=== PATIENT | male | born 1975 | race Caucasian/White ===

== ENCOUNTER 2020-06-10 12:21 | Inpatient (IN) | payer OTHER ==
--- NOTE | 2020-06-10 12:40 | BHS.RME ---
2019 N Coronavirus Screen - COVID-19 Screening Questions Dx of COVID-19 or had a positive test in the last 4 weeks?: No Contact with known/suspected COVID patient in last 14 days?: No Any of these symptoms or contact with someone who has?: None Traveled domestically/internationally in the last 14 days?: No Screen score: 0 Screen result: Further Evaluation Substance Use & Tx History - Substance Use History Heroin Substance amount: 10-15 bags Frequency of use: Daily Substance route: Injection (ex: intravenous or skin popping) Date of Last Use: 06/10/20 Xanax Substance amount: 2 to 4 mg Frequency of use: Daily Substance route: Oral Date of Last Use: 06/09/20 Nicotine Substance amount: one pack Frequency of use: Daily Substance route: Smoking Date of Last Use: 06/10/20 Cocaine- Powder Substance amount: $20 Frequency of use: Less than 3 times per week Substance route: Injection (ex: intravenous or skin popping) Date of Last Use: 06/09/20 Physical/Psych/Mental Status - Behavior General Behavior: Decreased activity Eye Contact: Normal - Cooperativeness Cooperativeness: Cooperative - Thinking Thought Processes: Tight Thought content: Future oriented - Physical Health Problems Is patient presently having any pain?: No Does patient presently have any injuries (include location): No Does patient currently have a fever: No COWS - Scale Resting Pulse: 0= [place] 80 or Below Sweatin= Chills/Flushing Restless Observation: 1= Difficult to Sit Still Pupil Size: 1= Pupils >than Normal Bone or Joint Aches: 1= Mild Discomfort Runny Nose/ Eye Tearin= Runny Nose/Eyes GI Upset > 30mins: 2= Nausea/Diarrhea Tremor Observation: 0= None Yawning Observation: 0= None Anxiety or Irritability: 1=Feels Anxious/Irritable Goose Flesh Skin: 0=Smooth Skin COWS Score: 9 CIWA Nausea/Vomitin-Mild Nausea/No Vomiting Muscle Tremors: None Anxiety: 3 Agitation: 1-Slight > Activity Paroxysmal Sweats: No Perspiration Orientation: 1-Uncertain about Date Tacttile Disturbances: 0-None Auditory Disturbances: 0-None Visual Disturbances: 0-None Headache: 0-None Present CIWA-Ar Total Score: 6
[2020-06-10 12:57] VITALS: BMI 21.9
--- NOTE | 2020-06-10 13:32 | HP ---
COWS - Scale Resting Pulse: 0= [place] 80 or Below Sweatin= Chills/Flushing Restless Observation: 1= Difficult to Sit Still Pupil Size: 1= Pupils >than Normal Bone or Joint Aches: 1= Mild Discomfort Runny Nose/ Eye Tearin= Runny Nose/Eyes GI Upset > 30mins: 2= Nausea/Diarrhea Tremor Observation: 0= None Yawning Observation: 0= None Anxiety or Irritability: 1=Feels Anxious/Irritable Goose Flesh Skin: 0=Smooth Skin COWS Score: 9 CIWA Score Nausea/Vomitin-Mild Nausea/No Vomiting Muscle Tremors: None Anxiety: 3 Agitation: 1-Slight > Activity Paroxysmal Sweats: No Perspiration Orientation: 1-Uncertain about Date Tacttile Disturbances: 0-None Auditory Disturbances: 0-None Visual Disturbances: 0-None Headache: 0-None Present CIWA-Ar Total Score: 6 - Admission Criteria OASAS Guidelines: Admission for Medically Managed Detox: Requires at least one of the followin. CIWA greater than 12 2. Seizures within the past 24 hours 3. Delirium tremens within the past 24 hours 4. Hallucinations within the past 24 hours 5. Acute intervention needed for co occurring medical disorder 6. Acute intervention needed for co occurring psychiatric disorder 7. Severe withdrawal that cannot be handled at a lower level of care (continued vomiting, continued diarrhea, abnormal vital signs) requiring intravenous medication and/or fluids 8. Patient presents the following: Acute intervention needed for co-occurring med or psych disorder Admission Criteria Met: Admission criteria met Admitting History and Physical - Admission Chief Complaint: I am here for detox from heroin and xanax History of Present Illness: 44 yo M with PMH Hepatitis C (untreated), L groin abscess (in the process of treatment, started antibiotics 1 week ago at [facility] ED but was inconsistent with his regimen) presented to [facility] for detox from heroin and xanax. Pt has been here previously from 05/07/15-05/13/15 for detox from heroin benzos and THC and completed detox. Pt was sober for 18 months. Pt relapsed after that and stated he "wanted to get high". PMH: as above PSH: none Psych: denies SOC/domiciled: homeless Legal: denies - Substance Use History Heroin Substance amount: 10-15 bags Frequency of use: Daily Substance route: Injection (ex: intravenous or skin popping) Date of Last Use: 06/10/20 Age first use: 17 YO Denies overdose. Admits to having narcan at home. Xanax Substance amount: 2 to 4 mg Frequency of use: Daily Substance route: Oral Date of Last Use: 06/09/20 age first use: 14 YO Denies history of seizures. Nicotine Substance amount: one pack Frequency of use: Daily Substance route: Smoking Date of Last Use: 06/10/20 age first use: 12 yo Cocaine- Powder Substance amount: $20 Frequency of use: Less than 3 times per week Substance route: Injection (ex: intravenous or skin popping) Date of Last Use: 06/09/20 Age first use: 14 YO Meets criteria for admission due to recent use. History Source: Patient Limitations to Obtaining History: Intoxication - Smoking History Smoking history: Current every day smoker Have you smoked in the past 12 months: Yes Aproximately how many cigarettes per day: 20 - Alcohol/Substance Use Hx Alcohol Use: No Admission ROS S - HPI Allergies/Adverse Reactions: Allergies Allergy/AdvReac Type Severity Reaction Status Date / Time Fish Containing Products Allergy Unknown Verified 06/10/20 13:01 Exam Limitations: No Limitations - Review of Systems Constitutional: No Symptoms Reported, Changes in sleep (12 hours of sleep), Unintentional Wgt. Loss (30 lbs lost over 2-3 months) EENT: denies: Blurred Vision, Double Vision, Recent change in vision, Ear Discharge, Ear Pain, Difficulty Swallowing, Throat Pain Respiratory: reports: No Symptoms reported. denies: Cough, Shortness of Breath Cardiac: reports: No Symptoms Reported. denies: Chest Pain, Lightheadedness GI: reports: No Symptoms Reported. denies: Constipated, Diarrhea, Nausea, Vomiting : reports: No Symptoms Reported. denies: Burning, Dysuria Musculoskeletal: reports: Joint Pain (b/l knee pain) Integumentary: reports: Other (L groin abscess) Neuro: reports: No Symptoms reported. denies: Headache, Numbness, Tingling, Dizziness Endocrine: reports: No Symptoms Reported Hematology: reports: No Symptoms Reported. denies: Blood Clots, Easy Bleeding Psychiatric: reports: No Sypmtoms Reported. denies: Anxious, Depressed Patient History - Patient Medical History Hx Anemia: No Hx Asthma: No Hx Chronic Obstructive Pulmonary Disease (COPD): No Hx Cancer: No Hx Cardiac Disorders: No Hx Hypertension: No Hx Hypercholesterolemia: No Hx Pacemaker: No HX Cerebrovascular Accident: No Hx Seizures: No Hx Dementia: No Hx Diabetes: No Hx Gastrointestinal Disorders: No Hx Liver Disease: No Hx Genitourinary Disorders: No Hx Sexually Transmitted Disorders: No Hx Renal Disease (ESRD): No Hx Thyroid Disease: No Hx Human Immunodeficiency Virus (HIV): No (negative last 08/20) Hx Hepatitis C: Yes Hx Depression: No Hx Suicide Attempt: No Hx Bipolar Disorder: No Hx Schizophrenia: No - Patient Surgical History Past Surgical History: No Hx Neurologic Surgery: No Hx Cataract Extraction: No Hx Cardiac Surgery: No Hx Lung Surgery: No Hx Breast Surgery: No Hx Breast Biopsy: No Hx Abdominal Surgery: No Hx Appendectomy: No Hx Cholecystectomy: No Hx Genitourinary Surgery: No Hx Section: No Hx Orthopedic Surgery: No Hx Hysterectomy: No Anesthesia Reaction: No - PPD History Previous Implant?: Yes Documented Results: Negative w/proof Date: 05/09/15 - Reproductive History Patient : (n/a) - Smoking Cessation Smoking history: Current every day smoker Have you smoked in the past 12 months: Yes Aproximately how many cigarettes per day: 20 Cigars Per Day: 0 Hx Chewing Tobacco Use: No Initiated information on smoking cessation: Yes 'Breaking Loose' booklet given: 06/10/20 Admission Physical Exam BHS - Vital Signs Vital Signs: Vital Signs - 24 hr 06/10/20 12:55 Temperature 96.7 F L Pulse Rate 69 Respiratory 18 Rate Blood Pressure 126/78 - Physical General Appearance: Yes: Nourished, Appropriately Dressed HEENTM: Yes: EOMI, Normocephalic, Normal Voice, [place], Other (moist mucus membranes. Pupils constricted and reactive to light) Respiratory: Yes: Chest Non-Tender, Lungs Clear, Normal Breath Sounds, No Respiratory Distress, No Accessory Muscle Use Neck: Yes: No masses,lesions,Nodules, Supple Breast: Yes: Breast Exam Deferred Cardiology: Yes: Regular Rhythm, Regular Rate, S1, S2 Abdominal: Yes: Normal Bowel Sounds, Non Tender, Flat, Soft Genitourinary: Yes: Other (L groin lesion with surrounding erythema. Fluctuance observed. 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 (3) Hepatitis C Current Visit: Yes Status: Chronic Qualifiers: Viral hepatitis chronicity: unspecified Hepatic coma status: without hepatic coma Qualified Code(s): B19.20 - Unspecified viral hepatitis C without hepatic coma (4) Nicotine dependence Current Visit: Yes Status: Chronic Qualifiers: Nicotine product type: cigarettes Substance use status: unspecified nicotine-induced disorder Qualified Code(s): F17.219 - Nicotine dependence, cigarettes, with unspecified nicotine-induced disorders (5) Abscess of groin, left Current Visit: Yes Status: Acute Cleared for Admission [facility] - Detox or Rehab [facility] Level of Care: Medically Managed Detox Regimen/Protocol: Ativan, Methadone Breathalyzer - Breathalyzer Breathalyzer: 0 Urine Drug Screen - Test Device Lot number: [id number] Expiration date: 03/12/22 - Control Is test valid?: Yes - Results Drug screen NEGATIVE: No Urine drug screen results: THC-Marijuana, LELIA-Cocaine, FEN-Fentanyl, MOP- Opiates, BZO-Benzodiazepines Inpatient Rehab Admission - Rehab Decision to Admit Inpatient rehab admission?: No
--- OUTSIDE RECORDS SUMMARY | 2020-06-10 13:37 | XMS ---
:1975 Author Organization [facility] Support Name Relationship Address Phone UE Unavailable Unavailable Unavailable [facility] [place] [address] [address] [place] [address] Re-disclosure Warning The records that you are about to access may contain information from federally- assisted alcohol or drug abuse programs. If such information is present, then the following federally mandated warning applies: This information has been disclosed to you from records protected by federal confidentiality rules (42 CFR part 2). The federal rules prohibit you from making any further disclosure of this information unless further disclosure is expressly permitted by the written consent of the person to whom it pertains or as otherwise permitted by 42 CFR part 2. A general authorization for the release of medical or other information is NOT sufficient for this purpose. The Federal rules restrict any use of the information to criminally investigate or prosecute any alcohol or drug abuse patient.The records that you are about to access may contain highly sensitive health information, the redisclosure of which is protected by Article 27-F of the [facility] Public Health law. If you continue you may haveaccess to information: Regarding HIV / AIDS; Provided by facilities licensed or operated by the [facility] Office of Mental Health; or Provided by the [facility] Office for People With Developmental Disabilities. If such information is present, then the following [facility] mandated warning applies: This information has been disclosed to you from confidential records which are protected by state law. State law prohibits you from making any further disclosure of this information without the specific written consent of the person to whom it pertains, or as otherwise permitted by law. Any unauthorized further disclosure in violation of state law may result in a fine or chcf sentence or both. A general authorization for the release of medical or other information is NOT sufficient authorization for further disclosure. Insurance Providers Payer name Policy type Policy ID Covered Covered constitution party's Policy P belia / Coverage constitution party ID relationship to Chase Inf ormation type chase BEACON [id number] SP [id number] [facility]
[2020-06-10] MEDS ORDERED: IBUPROFEN 400 MG TABLET (FP) PO PRN (13:43)
[2020-06-10] MEDS ORDERED: ACETAMINOPHEN 325 MG TABLET (FP) PO PRN ×2 (13:43)
[2020-06-10] MEDS ORDERED: METHOCARBAMOL 500 MG TABLET PO PRN (13:43)
[2020-06-10] MEDS ORDERED: LORazepam 1 MG TABLET PO PRN (13:43)
[2020-06-10] MEDS ORDERED: METHADONE HCL 10 MG TABLET (FOR DETOX USE ONLY) PO ONE (13:43)
[2020-06-10] MEDS ORDERED: cloNIDine HCL 0.1 MG TABLET PO PRN (13:43)
[2020-06-10] MEDS ORDERED: BISMUTH SUBSALICYLATE 262 MG/15 ML BTL PO PRN (13:43)
[2020-06-10] MEDS ORDERED: MAG HYDROX/AL HYDROX/SIMETH 30 ML UNIT-DOSE CUP PO PRN (13:43)
[2020-06-10] MEDS ORDERED: MAGNESIUM HYDROX 2400MG/30ML ORAL SUSPENSION 30 ML CUP PO PRN (13:43)
[2020-06-10] MEDS ORDERED: NICOTINE POLACRILEX 2 MG GUM BUC PRN (13:43)
[2020-06-10] MEDS ORDERED: MENTHOL/PHENOL 1 EACH UD MM PRN (13:43)
[2020-06-10] MEDS ORDERED: MAGNESIUM CITRATE 300 ML BOTTLE PO PRN (13:43)
[2020-06-10] MEDS ORDERED: ONDANSETRON *ODT* 4 MG TABLET SL PRN (13:43)
[2020-06-10] MEDS: CEPHALEXIN MONOHYDRATE 500 MG CAPSULE (UD) PO SCH ×2 (14:46→22:25)
[2020-06-10] MEDS: LORazepam 2 MG TABLET PO SCH ×3 (14:46→22:26)
[2020-06-10] MEDS: hydrOXYzine PAMOATE 25 MG CAPSULE (FP) PO SCH ×3 (14:51→22:28)
[2020-06-10 16:57] LABS: ALBUMIN 3.2 g/dl (3.4-5.0); BLOOD UREA NITROGEN 11.5 mg/dL (7-18)
[2020-06-10 17:00] LABS: CREATININE 0.6 mg/dL (0.55-1.3)
[2020-06-10 17:01] LABS: BILIRUBIN,TOTAL 0.9 mg/dL (0.2-1); TOT PROT 6.8 g/dl (6.4-8.2)
[2020-06-10 17:04] LABS: HEMATOCRIT 35.8 % (35.4-49); HEMOGLOBIN 11.8 GM/dL (11.7-16.9); MCH 27.9 pg (25.7-33.7); MCHC 32.8 g/dl (32.0-35.9); MEAN CELL VOLUME 85.2 fl (80-96); MEAN PLT VOLUME 8.1 fl (7.5-11.1); PLATELET COUNT 210 K/MM3 (134-434); RBC 4.21 M/mm3 (4.00-5.60); RDW 14.6 % (11.9-15.9); WHITE BLOOD COUNT 6.2 K/mm3 (4.0-10.0)
[2020-06-10] MEDS: THIAMINE HCL 100 MG TABLET (FP) PO SCH (22:25)
[2020-06-10] MEDS: MELATONIN 5 MG TABLETS PO SCH (22:26)
[2020-06-11] MEDS: CEPHALEXIN MONOHYDRATE 500 MG CAPSULE (UD) PO SCH ×5 (03:04→23:15)
[2020-06-11] MEDS: LORazepam 2 MG TABLET PO SCH ×4 (05:54→22:30)
[2020-06-11] MEDS: hydrOXYzine PAMOATE 25 MG CAPSULE (FP) PO SCH ×2 (05:57→10:10)
[2020-06-11] MEDS ORDERED: METHADONE HCL 10 MG TABLET (FOR DETOX USE ONLY) ONE (08:27)
[2020-06-11] MEDS ORDERED: METHADONE HCL 5 MG TABLET (FOR DETOX USE ONLY) ONE (08:27)
--- NOTE | 2020-06-11 09:09 | PN ---
Teaching Attending Note Name of Resident: Hannah Jorge ATTENDING PHYSICIAN STATEMENT I saw and evaluated the patient. I reviewed the resident's note and discussed the case with the resident. I agree with the resident's findings and plan as documented. SUBJECTIVE: OBJECTIVE: ASSESSMENT AND PLAN: 1. Sedative use disorder 2. Opioid use disorder Plan 1. Ativan detox 2. Methadone detox
[2020-06-11] MEDS ORDERED: METHADONE (DETOX) 20 MG, METHADONE (DETOX) 5 MG PO ONE (10:00)
[2020-06-11] MEDS: PRENATAL VITAMINS W/ FOLIC ACID TABLET (FP) PO SCH (10:09)
[2020-06-11] MEDS: NICOTINE 21 MG/24 HOURS TOPICAL PATCH TD SCH (10:11)
[2020-06-11] MEDS ORDERED: LORazepam 1 MG TABLET PO PRN (10:33)
--- NOTE | 2020-06-11 10:48 | PN ---
[facility] CIWA - CIWA Score Nausea/Vomitin-No Nausea/No Vomiting Muscle Tremors: 1-None Visible, but [place] Anxiety: 4-Mod. Anxious/Guarded Agitation: 2 Paroxysmal Sweats: 1-Minimal Palms Moist Orientation: 0-Oriented Tacttile Disturbances: 1-Very Mild Itch/Numbness Auditory Disturbances: 0-None Visual Disturbances: 2-Mild Sensitivity Headache: 1-Very Mild CIWA-Ar Total Score: 12 BHS COWS - Scale Resting Pulse: 0= [place] 80 or Below Sweatin= No chills or Flushing Restless Observation: 0= Sits Still Pupil Size: 1= Pupils >than Normal Bone or Joint Aches: 1= Mild Discomfort Runny Nose/ Eye Tearin= None GI Upset > 30mins: 0= None Tremor Observation of Outstretched Hands: 1= Tremor Eros, Not Seen Yawning Observation: 0= None Anxiety or Irritability: 2=Irritable/Anxious Goose Flesh Skin: 3=Piloerection COWS Score: 8 S Progress Note (SOAP) Subjective: 44 years old male was admitted on 06/10/20 for benzo and opiate withdrawal sx management treating with ativan and methadone detox regiments ate small amount of breakfast continue ensure 120 ml po tid with meals mr dowell appears sleepy needs constant light touch to avoid eyes closing discontinue vistaril reduces ativan dosage ekg Objective: 06/11/20 10:57 Vital Signs - 24 hr 06/10/20 06/10/20 06/10/20 12:55 14:16 16:17 Temperature 96.7 F L 98 F 97.6 F Pulse Rate 69 60 58 L Respiratory 18 20 18 Rate Blood Pressure 126/78 114/74 109/57 L O2 Sat by Pulse 99 99 Oximetry (%) 06/10/20 06/11/20 06/11/20 20:23 06:09 08:50 Temperature 97.6 F 97.7 F 98.3 F Pulse Rate 67 71 70 Respiratory 16 18 18 Rate Blood Pressure 112/58 L 134/81 134/79 O2 Sat by Pulse 95 95 95 Oximetry (%) Laboratory Tests 06/10/20 06/10/20 06/10/20 14:00 14:00 14:00 WBC 6.2 RBC 4.21 Hgb 11.8 Hct 35.8 MCV 85.2 MCH 27.9 MCHC 32.8 RDW 14.6 Plt Count 210 MPV 8.1 Sodium 138 Potassium 4.0 Chloride 102 Carbon Dioxide 29 Anion Gap 8 BUN 11.5 Creatinine 0.6 Est GFR (CKD-EPI)AfAm 140.73 Est GFR (CKD-EPI)NonAf 121.43 Random Glucose 146 H Calcium 9.0 Total Bilirubin 0.9 AST 43 H ALT 47 Alkaline Phosphatase 60 Total Protein 6.8 Albumin 3.2 L Syphilis Serology HIV Ag/Ab Combo Qual Negative 06/10/20 14:00 WBC RBC Hgb Hct MCV MCH MCHC RDW Plt Count MPV Sodium Potassium Chloride Carbon Dioxide Anion Gap BUN Creatinine Est GFR (CKD-EPI)AfAm Est GFR (CKD-EPI)NonAf Random Glucose Calcium Total Bilirubin AST ALT Alkaline Phosphatase Total Protein Albumin Syphilis Serology Non-reactive HIV Ag/Ab Combo Qual glucose elevation 06/11/20 10:59 fasting pending Assessment: 06/11/20 11:00 benzo and opiate withdrawal Plan: ativan and methadone regiment
--- NOTE | 2020-06-11 16:44 | EKG ---
Test Reason : Blood Pressure : / mmHG Vent. Rate : 055 BPM Atrial Rate : 055 BPM P-R Int : 148 ms QRS Dur : 088 ms QT Int : 428 ms P-R-T Axes : 074 080 068 degrees QTc Int : 409 ms SINUS BRADYCARDIA OTHERWISE NORMAL ECG NO PREVIOUS ECGS AVAILABLE Confirmed by AAKASH QUIGLEY MD ([id number]) on 06/11/2020 4:43:46 PM Referred By: Confirmed By:AAKASH QUIGLEY MD
[2020-06-11] MEDS: MELATONIN 5 MG TABLETS PO SCH (22:29)
[2020-06-11] MEDS: THIAMINE HCL 100 MG TABLET (FP) PO SCH (22:29)
[2020-06-12] MEDS ORDERED: LORazepam 1 MG TABLET PO SCH ×2 (05:00)
[2020-06-12] MEDS: CEPHALEXIN MONOHYDRATE 500 MG CAPSULE (UD) PO SCH ×4 (05:43→23:05)
[2020-06-12] MEDS ORDERED: LORazepam 0.5 MG TABLET PO SCH (05:52)
[2020-06-12] MEDS: PRENATAL VITAMINS W/ FOLIC ACID TABLET (FP) PO SCH (09:48)
[2020-06-12] MEDS: NICOTINE 21 MG/24 HOURS TOPICAL PATCH TD SCH (09:49)
[2020-06-12] MEDS ORDERED: METHADONE HCL 10 MG TABLET (FOR DETOX USE ONLY) PO ONE (10:00)
--- NOTE | 2020-06-12 10:05 | PN ---
[facility] CIWA - CIWA Score Nausea/Vomitin-No Nausea/No Vomiting Muscle Tremors: 1-None Visible, but [place] Anxiety: 1-Mildly Anxious Agitation: 1-Slight > Activity Paroxysmal Sweats: No Perspiration Orientation: 1-Uncertain about Date Tacttile Disturbances: 0-None Auditory Disturbances: 0-None Visual Disturbances: 0-None Headache: 0-None Present CIWA-Ar Total Score: 4 S COWS - Scale Resting Pulse: 1= [place] 81-100 Sweatin= No chills or Flushing Restless Observation: 0= Sits Still Pupil Size: 0= Normal to Room Light Bone or Joint Aches: 0= None Runny Nose/ Eye Tearin= None GI Upset > 30mins: 0= None Tremor Observation of Outstretched Hands: 0= None Yawning Observation: 0= None Anxiety or Irritability: 1=Feels Anxious/Irritable Goose Flesh Skin: 0=Smooth Skin COWS Score: 2 [facility] Progress Note (SOAP) Subjective: Pt appears anxious, in bed, no complaints Objective: 06/12/20 10:03 PE Gnl: WDWN, in bed MS: anxious, irritable Motor: moves limbs well Coord: grossly nl Gait; deferred Laboratory Tests 06/10/20 06/10/20 06/10/20 14:00 14:00 14:00 WBC 6.2 RBC 4.21 Hgb 11.8 Hct 35.8 MCV 85.2 MCH 27.9 MCHC 32.8 RDW 14.6 Plt Count 210 MPV 8.1 Sodium 138 Potassium 4.0 Chloride 102 Carbon Dioxide 29 Anion Gap 8 BUN 11.5 Creatinine 0.6 Est GFR (CKD-EPI)AfAm 140.73 Est GFR (CKD-EPI)NonAf 121.43 POC Glucometer Random Glucose 146 H Calcium 9.0 Total Bilirubin 0.9 AST 43 H ALT 47 Alkaline Phosphatase 60 Total Protein 6.8 Albumin 3.2 L Syphilis Serology COVID-19 ([facility]ACIO) HIV Ag/Ab Combo Qual Negative 06/10/20 06/10/20 06/11/20 14:00 14:00 16:21 WBC RBC Hgb Hct MCV MCH MCHC RDW Plt Count MPV Sodium Potassium Chloride Carbon Dioxide Anion Gap BUN Creatinine Est GFR (CKD-EPI)AfAm Est GFR (CKD-EPI)NonAf POC Glucometer 135 Random Glucose Calcium Total Bilirubin AST ALT Alkaline Phosphatase Total Protein Albumin Syphilis Serology Non-reactive COVID-19 ([facility]ACIO) Not detected HIV Ag/Ab Combo Qual 06/12/20 05:42 WBC RBC Hgb Hct MCV MCH MCHC RDW Plt Count MPV Sodium Potassium Chloride Carbon Dioxide Anion Gap BUN Creatinine Est GFR (CKD-EPI)AfAm Est GFR (CKD-EPI)NonAf POC Glucometer 150 Random Glucose Calcium Total Bilirubin AST ALT Alkaline Phosphatase Total Protein Albumin Syphilis Serology COVID-19 ([facility]IO) HIV Ag/Ab Combo Qual Home Medication List Medication Instructions Recorded Confirmed Type Cephalexin [Keflex] 500 mg PO Q6H 06/10/20 06/10/20 History Active Medications Generic Name Dose Route Start Last Admin Trade Name Freq PRN Reason Stop Dose Admin Acetaminophen 650 mg 06/10/20 13:43 Tylenol - PO Q6H PRN PAIN LEVEL 4 - 6 Acetaminophen 650 mg 06/10/20 13:43 Tylenol - PO Q6H PRN FEVER Al Hydroxide/Mg Hydroxide 30 ml 06/10/20 13:43 Mylanta Oral Suspension - PO Q6H PRN DYSPEPSIA Bismuth Subsalicylate 30 ml 06/10/20 13:43 Pepto-Bismol Liquid - PO Q1H PRN DIARRHEA Cephalexin HCl 500 mg 06/11/20 03:03 06/12/20 05:43 Keflex - PO 500 mg Q6HPO DAVIE Administration Clonidine 0.1 mg 06/10/20 13:43 Catapres - PO 06/12/20 23:59 Q4H PRN Withdrawal Symptoms Eucalyptus/Menthol/Phenol/Sorbitol 1 each 06/10/20 13:43 Cepastat Lozenge - MM 06/16/20 13:44 Q4H PRN SORE THROAT Ibuprofen 400 mg 06/10/20 13:43 Motrin - PO Q6H PRN PAIN LEVEL 1 - 3 Lorazepam 0.5 mg 06/13/20 00:00 Ativan - PO 06/14/20 00:00 Q4H PRN Symptoms of Withdrawal Lorazepam 0.5 mg 06/14/20 05:00 Ativan - PO 06/14/20 05:01 ONCE ONE Lorazepam 0.5 mg 06/13/20 10:30 Ativan - PO 06/13/20 22:31 Q12H ADVIE Lorazepam 1 mg 06/11/20 10:33 06/12/20 09:48 Ativan - PO 06/12/20 23:59 1 mg Q4H PRN Administration Symptoms of Withdrawal Lorazepam 0.5 mg 06/12/20 05:52 06/12/20 06:18 Ativan - PO 06/12/20 13:01 0.5 mg Q8H DAVIE Administration Magnesium Citrate 300 ml 06/10/20 13:43 Citroma - PO Q48H PRN CONSTIPATION Magnesium Hydroxide 30 ml 06/10/20 13:43 Milk Of Magnesia - PO PRN PRN CONSTIPATION Melatonin 5 mg 06/10/20 22:00 06/11/20 22:29 Melatonin PO Not Given [facility] Methadone HCl 5 mg 06/15/20 06:00 Dolophine - PO 06/15/20 06:01 ONCE@0600 ONE Methadone HCl 10 mg 06/14/20 10:00 Dolophine - PO 06/14/20 10:01 ONCE ONE Methadone HCl 10 mg/ Methadone 15 mg 06/13/20 10:00 HCl 5 mg PO 06/13/20 10:01 ONCE ONE Methocarbamol 500 mg 06/10/20 13:43 Robaxin - PO 06/16/20 13:44 Q6H PRN MUSCLE SPASMS Nicotine 21 mg 06/11/20 10:00 06/12/20 09:49 Nicoderm Patch - TD Not Given DAILY [facility] Nicotine Polacrilex 2 mg 06/10/20 13:43 Nicorette Gum - BUC Q2H PRN NICOTINE REPLACEMENT RX Ondansetron HCl 4 mg 06/10/20 13:43 Zofran Odt - SL Q8H PRN Nausea/Vomiting Multivit/Folic Acid/Iron 1 tab 06/11/20 10:00 06/12/20 09:48 Vitamins (Sjr) - PO 1 tab DAILY [facility] Administration Thiamine HCl 100 mg 06/10/20 22:00 06/11/20 22:29 Vitamin B1 - PO 100 mg HS DAVIE Administration Assessment: 06/12/20 10:01 44 years old male was admitted on 06/10/20 for benzo and opiate withdrawal sx management treating with ativan and methadone detox regiments 1. Sedative use disorder, was sleepy yesterday, ativan dosage reduced 2. Opiate use disorder, was sleepy yesterday, Vistaril stopped 3. elevated glucose, no hx of DM 06/12/20 10:07 Plan: 1. Methadone detox projected completion tomorrow 2. will check with counselor as to discharge plans. 3. monitoring glucose
[2020-06-12] MEDS: THIAMINE HCL 100 MG TABLET (FP) PO SCH (22:48)
[2020-06-12] MEDS: MELATONIN 5 MG TABLETS PO SCH (22:54)
[2020-06-13] MEDS ORDERED: LORazepam 0.5 MG TABLET PO PRN
[2020-06-13] MEDS ORDERED: LORazepam 0.5 MG TABLET PO SCH (05:00)
[2020-06-13] MEDS: CEPHALEXIN MONOHYDRATE 500 MG CAPSULE (UD) PO SCH ×4 (06:50→23:24)
[2020-06-13] MEDS ORDERED: METHADONE HCL 10 MG TABLET (FOR DETOX USE ONLY) ONE (08:39)
[2020-06-13] MEDS ORDERED: METHADONE HCL 5 MG TABLET (FOR DETOX USE ONLY) ONE (08:39)
[2020-06-13] MEDS ORDERED: METHADONE (DETOX) 10 MG, METHADONE (DETOX) 5 MG PO ONE (10:00)
[2020-06-13] MEDS: PRENATAL VITAMINS W/ FOLIC ACID TABLET (FP) PO SCH (10:30)
[2020-06-13] MEDS: NICOTINE 21 MG/24 HOURS TOPICAL PATCH TD SCH (10:31)
[2020-06-13] MEDS: LORazepam 0.5 MG TABLET PO SCH ×2 (10:31→22:41)
[2020-06-13] MEDS ORDERED: MASKS NR ONE (12:07)
--- NOTE | 2020-06-13 13:24 | PN ---
[facility] CIWA - CIWA Score Nausea/Vomitin-No Nausea/No Vomiting Muscle Tremors: None Anxiety: 1-Mildly Anxious Agitation: 0-Normal Activity Paroxysmal Sweats: 1-Minimal Palms Moist Orientation: 0-Oriented Tacttile Disturbances: 0-None Auditory Disturbances: 0-None Visual Disturbances: 0-None Headache: 0-None Present CIWA-Ar Total Score: 2 S COWS - Scale Resting Pulse: 0= [place] 80 or Below Sweatin= No chills or Flushing Restless Observation: 0= Sits Still Pupil Size: 0= Normal to Room Light Bone or Joint Aches: 2= Severe Diffuse Aches Runny Nose/ Eye Tearin= None GI Upset > 30mins: 0= None Tremor Observation of Outstretched Hands: 0= None Yawning Observation: 0= None Anxiety or Irritability: 2=Irritable/Anxious Goose Flesh Skin: 0=Smooth Skin COWS Score: 4 [facility] Progress Note (SOAP) Subjective: c/o mild withdrawal symptoms. Objective: 06/13/20 13:23 Vital Signs 06/13/20 06/13/20 06/13/20 05:48 08:31 12:33 Temperature 98.6 F 97.1 F L 98.0 F Pulse Rate 67 74 68 Respiratory 18 18 18 Rate Blood Pressure 119/81 142/92 125/74 O2 Sat by Pulse 95 98 Oximetry (%) Laboratory Last Values WBC 6.2 K/mm3 (4.0-10.0) 06/10/20 14:00 RBC 4.21 M/mm3 (4.00-5.60) 06/10/20 14:00 Hgb 11.8 GM/dL (11.7-16.9) 06/10/20 14:00 Hct 35.8 % (35.4-49) 06/10/20 14:00 MCV 85.2 fl (80-96) 06/10/20 14:00 MCH 27.9 pg (25.7-33.7) 06/10/20 14:00 MCHC 32.8 g/dl (32.0-35.9) 06/10/20 14:00 RDW 14.6 % (11.9-15.9) 06/10/20 14:00 Plt Count 210 K/MM3 (134-434) 06/10/20 14:00 MPV 8.1 fl (7.5-11.1) 06/10/20 14:00 Sodium 138 mmol/L (136-145) 06/10/20 14:00 Potassium 4.0 mmol/L (3.5-5.1) 06/10/20 14:00 Chloride 102 mmol/L (98-107) 06/10/20 14:00 Carbon Dioxide 29 mmol/L (21-32) 06/10/20 14:00 Anion Gap 8 MMOL/L (8-16) 06/10/20 14:00 BUN 11.5 mg/dL (7-18) 06/10/20 14:00 Creatinine 0.6 mg/dL (0.55-1.3) 06/10/20 14:00 Est GFR (CKD-EPI)AfAm 140.73 06/10/20 14:00 Est GFR (CKD-EPI)NonAf 121.43 06/10/20 14:00 POC Glucometer 125 UNITS (80-120) 06/12/20 16:42 Random Glucose 146 mg/dL (74-106) H 06/10/20 14:00 Fasting Glucose 120 mg/dL (74-106) H 06/12/20 07:20 Calcium 9.0 mg/dL (8.5-10.1) 06/10/20 14:00 Total Bilirubin 0.9 mg/dL (0.2-1) 06/10/20 14:00 AST 43 U/L (15-37) H 06/10/20 14:00 ALT 47 U/L (13-61) 06/10/20 14:00 Alkaline Phosphatase 60 U/L (45-117) 06/10/20 14:00 Total Protein 6.8 g/dl (6.4-8.2) 06/10/20 14:00 Albumin 3.2 g/dl (3.4-5.0) L 06/10/20 14:00 Syphilis Serology Non-reactive (NONREACTIVE) 06/10/20 14:00 COVID-19 ([facility]) Not detected (Not Detected) 06/10/20 14:00 HIV Ag/Ab Combo Qual Negative (NEGATIVE) 06/10/20 14:00 Labs noted. Assessment: 06/13/20 13:24 Pt is AOX3 and in no acute respiratory distress, Full ROM, ambulating in the unit. Mild Withdrawal symptoms. Plan: continue detox.
[2020-06-13] MEDS: MELATONIN 5 MG TABLETS PO SCH (22:41)
[2020-06-13] MEDS: THIAMINE HCL 100 MG TABLET (FP) PO SCH (22:46)
[2020-06-14] MEDS ORDERED: LORazepam 0.5 MG TABLET PO ONE (05:00)
--- NOTE | 2020-06-14 08:57 | DS ---
[facility] Detox Discharge Summary Admission Date: 06/10/20 Discharge Date: 06/14/20 - History Present History: Opioid Dependence, Sedative Dependence Additional Comments: 44 years old male was admitted on 06/10/20 for benzo and opiate withdrawal sx management treating with ativan and methadone detox regiment feels better today less tremor mild general body aches mr dowell prefers to go home today and follow up with [facility] for benzo and opiate abuse treatment mr dowell is alert oriented x 3 speech clearly coherently ambulating steady gaits General Appearance: Yes: Nourished, Appropriately Dressed HEENTM: Yes: EOMI, Normocephalic, Normal Voice, [place], Other (moist mucus membranes. Pupils constricted and reactive to light) Respiratory: Yes: Chest Non-Tender, Lungs Clear, Normal Breath Sounds, No Respiratory Distress, No Accessory Muscle Use Neck: Yes: No masses,lesions,Nodules, Supple Breast: Yes: Breast Exam Deferred Cardiology: Yes: Regular Rhythm, Regular Rate, S1, S2 Abdominal: Yes: Normal Bowel Sounds, Non Tender, Flat, Soft Genitourinary: Yes: Other (L groin lesion with surrounding erythema. Fluctuance observed. Nontender to palpation) Back: Yes: Normal Inspection Musculoskeletal: Yes: Gait Steady Extremities: Yes: Normal Inspection, Non-Tender Neurological: Yes: airplane pilot II-XII NML intact, Fully Oriented, Motor Strength 5/5, N ormal Mood/Affect, Normal Response Integumentary: Yes: Dry, Warm, Other (Lesion on groin as described above) Pertinent Past History: time for discharge 47 minutes treatment team met with mr dowell to discuss benefits of ativan and methadone regiment completion mr dowell insists to leave detox one day early instead of estimated discharge day of 06/15/20 mr dowell agrees to follow up with [facility] - Physical Exam Results Vital Signs: Vital Signs Temperature 98.1 F 06/14/20 06:34 Pulse Rate 78 06/14/20 06:34 Respiratory Rate 18 06/14/20 06:34 Blood Pressure 122/71 06/14/20 06:34 O2 Sat by Pulse Oximetry (%) 96 06/14/20 06:34 Pertinent Admission Physical Exam Findings: benzo and opiate withdrawal Vital Signs - 24 hr 06/13/20 06/13/20 06/14/20 16:40 21:00 06:34 Temperature 98.2 F 96.6 F L 98.1 F Pulse Rate 76 64 78 Respiratory 16 18 18 Rate Blood Pressure 140/89 114/76 122/71 O2 Sat by Pulse 97 96 Oximetry (%) 06/14/20 08:48 Temperature 97.5 F L Pulse Rate 72 Respiratory 18 Rate Blood Pressure 117/78 O2 Sat by Pulse Oximetry (%) Laboratory Tests 06/10/20 06/10/20 06/10/20 14:00 14:00 14:00 WBC 6.2 RBC 4.21 Hgb 11.8 Hct 35.8 MCV 85.2 MCH 27.9 MCHC 32.8 RDW 14.6 Plt Count 210 MPV 8.1 Sodium 138 Potassium 4.0 Chloride 102 Carbon Dioxide 29 Anion Gap 8 BUN 11.5 Creatinine 0.6 Est GFR (CKD-EPI)AfAm 140.73 Est GFR (CKD-EPI)NonAf 121.43 POC Glucometer Random Glucose 146 H Fasting Glucose Calcium 9.0 Total Bilirubin 0.9 AST 43 H ALT 47 Alkaline Phosphatase 60 Total Protein 6.8 Albumin 3.2 L Syphilis Serology COVID-19 ([facility]) HIV Ag/Ab Combo Qual Negative 06/10/20 06/10/20 06/11/20 14:00 14:00 16:21 WBC RBC Hgb Hct MCV MCH MCHC RDW Plt Count MPV Sodium Potassium Chloride Carbon Dioxide Anion Gap BUN Creatinine Est GFR (CKD-EPI)AfAm Est GFR (CKD-EPI)NonAf POC Glucometer 135 Random Glucose Fasting Glucose Calcium Total Bilirubin AST ALT Alkaline Phosphatase Total Protein Albumin Syphilis Serology Non-reactive COVID-19 ([facility]) Not detected HIV Ag/Ab Combo Qual 06/12/20 06/12/20 06/12/20 05:42 07:20 16:42 WBC RBC Hgb Hct MCV MCH MCHC RDW Plt Count MPV Sodium Potassium Chloride Carbon Dioxide Anion Gap BUN Creatinine Est GFR (CKD-EPI)AfAm Est GFR (CKD-EPI)NonAf POC Glucometer 150 125 Random Glucose Fasting Glucose 120 H Calcium Total Bilirubin AST ALT Alkaline Phosphatase Total Protein Albumin Syphilis Serology COVID-19 ([facility]) HIV Ag/Ab Combo Qual 06/13/20 16:33 WBC RBC Hgb Hct MCV MCH MCHC RDW Plt Count MPV Sodium Potassium Chloride Carbon Dioxide Anion Gap BUN Creatinine Est GFR (CKD-EPI)AfAm Est GFR (CKD-EPI)NonAf POC Glucometer 174 Random Glucose Fasting Glucose Calcium Total Bilirubin AST ALT Alkaline Phosphatase Total Protein Albumin Syphilis Serology COVID-19 ([facility]) HIV Ag/Ab Combo Qual glucose elevation bgm within acceptable range - Treatment Hospital Course: Detox Protocol Followed, Detoxed Safely, Responded well, Discharged Condition Good, Rehab Referral Accepted Patient has Accepted a Rehab Referral to: [facility] - Medication Discharge Medications: Ambulatory Orders Cephalexin [Keflex] 500 mg PO Q6H #14 cap 06/14/20 - Diagnosis (1) Sedative dependence Status: Acute (2) Nicotine dependence Status: Acute Qualifiers: Nicotine product type: cigarettes Substance use status: unspecified nicotine-induced disorder Qualified Code(s): F17.219 - Nicotine dependence, cigarettes, with unspecified nicotine-induced disorders (3) Opiate withdrawal Status: Acute (4) Hepatitis C Status: Chronic Qualifiers: Viral hepatitis chronicity: unspecified Hepatic coma status: without hepatic coma Qualified Code(s): B19.20 - Unspecified viral hepatitis C without hepatic coma (5) Abscess of groin, left Status: Chronic - AMA Did Patient Leave Against Medical Advice: No CIWA Score - CIWA Score Nausea/Vomitin-No Nausea/No Vomiting Muscle Tremors: None Anxiety: 1-Mildly Anxious Agitation: 0-Normal Activity Paroxysmal Sweats: No Perspiration Orientation: 0-Oriented Tacttile Disturbances: 0-None Auditory Disturbances: 0-None Visual Disturbances: 0-None Headache: 0-None Present CIWA-Ar Total Score: 1 COWS (PN) - Opiate Withdrawal Resting Pulse: 0= [place] 80 or Below Sweatin= No chills or Flushing Restless Observation: 0= Sits Still Pupil Size: 0= Normal to Room Light Bone or Joint Aches: 1= Mild Discomfort Runny Nose/ Eye Tearin= None GI Upset > 30mins: 0= None Tremor Observation of Outstretched Hands: 1= Tremor [place], Not Seen Yawning Observation: 0= None Anxiety or Irritability: 0= None Goose Flesh Skin: 0=Smooth Skin COWS Score: 2
[2020-06-14 09:16] VITALS: BP 117/78; PULSE 72; TEMP 97.5
[2020-06-14] MEDS: NICOTINE 21 MG/24 HOURS TOPICAL PATCH TD SCH (09:36)
[2020-06-14] MEDS: PRENATAL VITAMINS W/ FOLIC ACID TABLET (FP) PO SCH (09:37)
[2020-06-14] MEDS ORDERED: METHADONE HCL 10 MG TABLET (FOR DETOX USE ONLY) PO ONE (10:00)
[2020-06-15] MEDS ORDERED: METHADONE HCL 5 MG TABLET (FOR DETOX USE ONLY) PO ONE (06:00)
== END 2020-06-14 09:15 | disposition home or self-care (01) | DRG 773 ==
LOC: YASAS 12:21 → Y3N 13:32
PROVIDERS: ADMIT Allergy & Immunology; ATTEND Allergy & Immunology
PROC: HZ2ZZZZ Detoxification Services for Substance Abuse Treatment (ICD-10-PCS; principal; 2020-06-10)
DX: F11.23 Opioid dependence with withdrawal (principal); F13.230 Sedative, hypnotic or anxiolytic dependence with withdrawal, uncomplicated; F14.10 Cocaine abuse, uncomplicated; F17.219 Nicotine dependence, cigarettes, with unspecified nicotine-induced disorders; B19.20 Unspecified viral hepatitis C without hepatic coma; L02.214 Cutaneous abscess of groin; R73.9 Hyperglycemia, unspecified; R63.4 Abnormal weight loss; Z68.21 Body mass index [BMI] 21.0-21.9, adult; Z91.013 Allergy to seafood; Z59.0 Homelessness
CPT/HCPCS: 36415; 80053; 82947; 82962; 85027; 86780; 87389; 93005; 93010; C9803; U0003

== ENCOUNTER 2020-09-03 16:38 | Inpatient (IN) | payer OTHER ==
[2020-09-03 18:15] VITALS: BMI 21.6
[2020-09-03] MEDS ORDERED: ONDANSETRON *ODT* 4 MG TABLET SL PRN (20:48)
[2020-09-03] MEDS ORDERED: MAGNESIUM CITRATE 300 ML BOTTLE PO PRN (20:48)
[2020-09-03] MEDS ORDERED: MAGNESIUM HYDROX 2400MG/30ML ORAL SUSPENSION 30 ML CUP PO PRN (20:48)
[2020-09-03] MEDS ORDERED: MENTHOL/PHENOL 1 EACH UD MM PRN (20:48)
[2020-09-03] MEDS ORDERED: NICOTINE POLACRILEX 2 MG GUM BUC PRN (20:48)
[2020-09-03] MEDS ORDERED: diazePAM 5 MG TABLET PO PRN (20:48)
[2020-09-03] MEDS ORDERED: hydrOXYzine PAMOATE 25 MG CAPSULE (FP) PO PRN (20:48)
[2020-09-03] MEDS ORDERED: cloNIDine HCL 0.1 MG TABLET PO PRN (20:48)
[2020-09-03] MEDS ORDERED: MAG HYDROX/AL HYDROX/SIMETH 30 ML UNIT-DOSE CUP PO PRN (20:48)
[2020-09-03] MEDS ORDERED: METHADONE HCL 10 MG TABLET (FOR DETOX USE ONLY) PO ONE (20:48)
[2020-09-03] MEDS ORDERED: BISMUTH SUBSALICYLATE 524 MG/30 ML UD PO PRN (20:48)
[2020-09-03] MEDS ORDERED: ACETAMINOPHEN 325 MG TABLET (FP) PO PRN ×2 (20:48)
[2020-09-03] MEDS ORDERED: METHOCARBAMOL 500 MG TABLET PO PRN (20:48)
[2020-09-03] MEDS ORDERED: IBUPROFEN 400 MG TABLET (FP) PO PRN (20:48)
[2020-09-03] MEDS: MELATONIN 5 MG TABLETS PO SCH (22:57)
[2020-09-03] MEDS: diazePAM 5 MG TABLET PO SCH (22:57)
[2020-09-03] MEDS: THIAMINE HCL 100 MG TABLET (FP) PO SCH (23:02)
[2020-09-04] MEDS: diazePAM 5 MG TABLET PO SCH ×5 (06:37→22:36)
[2020-09-04] MEDS ORDERED: METHADONE HCL 10 MG TABLET (FOR DETOX USE ONLY) ONE (09:24)
[2020-09-04] MEDS ORDERED: METHADONE HCL 5 MG TABLET (FOR DETOX USE ONLY) ONE (09:25)
[2020-09-04] MEDS ORDERED: METHADONE (DETOX) 20 MG, METHADONE (DETOX) 5 MG PO ONE (10:00)
[2020-09-04] MEDS: NICOTINE 21 MG/24 HOURS TOPICAL PATCH TD SCH (10:15)
[2020-09-04] MEDS: PRENATAL VITAMINS W/ FOLIC ACID TABLET (FP) PO SCH (10:18)
[2020-09-04 12:31] LABS: HEMATOCRIT 37.5 % (35.4-49); HEMOGLOBIN 12.5 GM/dL (11.7-16.9); MCH 29.4 pg (25.7-33.7); MCHC 33.4 g/dl (32.0-35.9); MEAN PLT VOLUME 8.1 fl (7.5-11.1); PLATELET COUNT 183 K/MM3 (134-434); RBC 4.26 M/mm3 (4.00-5.60); RDW 14.5 % (11.9-15.9); WHITE BLOOD COUNT 5.4 K/mm3 (4.0-10.0)
[2020-09-04 12:35] LABS: POTASSIUM 4.3 mmol/L (3.5-5.1)
[2020-09-04 12:40] LABS: BLOOD UREA NITROGEN 11.4 mg/dL (7-18); CALCIUM 8.4 mg/dL (8.5-10.1)
[2020-09-04 12:41] LABS: ALBUMIN 3.3 g/dl (3.4-5.0)
[2020-09-04 12:44] LABS: CREATININE 0.8 mg/dL (0.55-1.3)
[2020-09-04 12:46] LABS: BILIRUBIN,TOTAL 0.4 mg/dL (0.2-1); TOT PROT 6.6 g/dl (6.4-8.2)
[2020-09-04] MEDS: THIAMINE HCL 100 MG TABLET (FP) PO SCH (22:36)
[2020-09-04] MEDS: MELATONIN 5 MG TABLETS PO SCH (22:36)
[2020-09-05] MEDS: diazePAM 5 MG TABLET PO SCH ×3 (07:16→22:19)
[2020-09-05] MEDS: PRENATAL VITAMINS W/ FOLIC ACID TABLET (FP) PO SCH ×2 (09:44→09:46)
[2020-09-05] MEDS: NICOTINE 21 MG/24 HOURS TOPICAL PATCH TD SCH (09:45)
[2020-09-05] MEDS ORDERED: METHADONE HCL 10 MG TABLET (FOR DETOX USE ONLY) PO ONE (10:00)
[2020-09-05] MEDS: THIAMINE HCL 100 MG TABLET (FP) PO SCH (22:18)
[2020-09-05] MEDS: MELATONIN 5 MG TABLETS PO SCH (22:18)
[2020-09-06] MEDS: diazePAM 5 MG TABLET PO SCH ×2 (07:00→18:01)
[2020-09-06] MEDS ORDERED: METHADONE HCL 10 MG TABLET (FOR DETOX USE ONLY) ONE (09:53)
[2020-09-06] MEDS ORDERED: METHADONE HCL 5 MG TABLET (FOR DETOX USE ONLY) ONE (09:54)
[2020-09-06] MEDS ORDERED: METHADONE (DETOX) 10 MG, METHADONE (DETOX) 5 MG PO ONE (10:00)
[2020-09-06] MEDS: PRENATAL VITAMINS W/ FOLIC ACID TABLET (FP) PO SCH (10:45)
[2020-09-06] MEDS: NICOTINE 21 MG/24 HOURS TOPICAL PATCH TD SCH (10:47)
[2020-09-06] MEDS: MELATONIN 5 MG TABLETS PO SCH (23:14)
[2020-09-06] MEDS: THIAMINE HCL 100 MG TABLET (FP) PO SCH (23:14)
[2020-09-07] MEDS ORDERED: diazePAM 5 MG TABLET PO ONE (06:00)
[2020-09-07] MEDS ORDERED: METHADONE HCL 10 MG TABLET (FOR DETOX USE ONLY) PO ONE (10:00)
[2020-09-07] MEDS: PRENATAL VITAMINS W/ FOLIC ACID TABLET (FP) PO SCH (10:23)
[2020-09-07] MEDS: NICOTINE 21 MG/24 HOURS TOPICAL PATCH TD SCH (10:25)
[2020-09-07] MEDS: MELATONIN 5 MG TABLETS PO SCH (22:32)
[2020-09-07] MEDS: THIAMINE HCL 100 MG TABLET (FP) PO SCH (22:32)
[2020-09-08] MEDS ORDERED: METHADONE HCL 5 MG TABLET (FOR DETOX USE ONLY) PO ONE (06:00)
[2020-09-08 09:22] VITALS: BP 124/87; PULSE 106; TEMP 96.9
== END 2020-09-08 09:15 | disposition home or self-care (01) | DRG 773 ==
LOC: YASAS 16:38 → Y3N 21:03
PROVIDERS: ADMIT Allergy & Immunology; ATTEND Allergy & Immunology
PROC: HZ2ZZZZ Detoxification Services for Substance Abuse Treatment (ICD-10-PCS; principal; 2020-09-03)
DX: F11.23 Opioid dependence with withdrawal (principal); F13.230 Sedative, hypnotic or anxiolytic dependence with withdrawal, uncomplicated; F14.20 Cocaine dependence, uncomplicated; F12.20 Cannabis dependence, uncomplicated; F17.219 Nicotine dependence, cigarettes, with unspecified nicotine-induced disorders; L02.214 Cutaneous abscess of groin; B19.20 Unspecified viral hepatitis C without hepatic coma; R03.0 Elevated blood-pressure reading, without diagnosis of hypertension; R74.01 Elevation of levels of liver transaminase levels; Z91.013 Allergy to seafood
CPT/HCPCS: 36415; 80053; 85027; 86780; C9803; Q0162; U0003

== ENCOUNTER 2020-10-22 17:38 | Inpatient (IN) | payer OTHER ==
[2020-10-22] MEDS ORDERED: BISMUTH SUBSALICYLATE 524 MG/30 ML UD PO PRN (20:59)
[2020-10-22] MEDS ORDERED: MENTHOL/PHENOL 1 EACH UD MM PRN (20:59)
[2020-10-22] MEDS ORDERED: NICOTINE POLACRILEX 2 MG GUM BUC PRN (20:59)
[2020-10-22] MEDS ORDERED: cloNIDine HCL 0.1 MG TABLET PO PRN (20:59)
[2020-10-22] MEDS ORDERED: METHADONE HCL 10 MG TABLET (FOR DETOX USE ONLY) PO ONE (20:59)
[2020-10-22] MEDS ORDERED: IBUPROFEN 400 MG TABLET (FP) PO PRN (20:59)
[2020-10-22] MEDS ORDERED: MAGNESIUM CITRATE 300 ML BOTTLE PO PRN (20:59)
[2020-10-22] MEDS ORDERED: METHOCARBAMOL 500 MG TABLET PO PRN (20:59)
[2020-10-22] MEDS ORDERED: ACETAMINOPHEN 325 MG TABLET (FP) PO PRN ×2 (20:59)
[2020-10-22] MEDS ORDERED: ONDANSETRON *ODT* 4 MG TABLET SL PRN (20:59)
[2020-10-22] MEDS ORDERED: MAGNESIUM HYDROX 2400MG/30ML ORAL SUSPENSION 30 ML CUP PO PRN (20:59)
[2020-10-22] MEDS ORDERED: MAG HYDROX/AL HYDROX/SIMETH 30 ML UNIT-DOSE CUP PO PRN (20:59)
[2020-10-22 21:56] VITALS: BMI 21.6
[2020-10-22] MEDS ORDERED: METHADONE HCL 10 MG TABLET (FOR DETOX USE ONLY) ONE (21:59)
[2020-10-23] MEDS ORDERED: METHADONE (DETOX) 20 MG, METHADONE (DETOX) 5 MG PO ONE (10:00)
[2020-10-23] MEDS ORDERED: METHADONE HCL 10 MG TABLET (FOR DETOX USE ONLY) ONE (10:58)
[2020-10-23] MEDS ORDERED: METHADONE HCL 5 MG TABLET (FOR DETOX USE ONLY) ONE (10:58)
[2020-10-23] MEDS: NICOTINE 21 MG/24 HOURS TOPICAL PATCH TD SCH (11:06)
[2020-10-23] MEDS: PRENATAL VITAMINS W/ FOLIC ACID TABLET (FP) PO SCH (11:06)
[2020-10-23 12:05] LABS: HEMATOCRIT 37.5 % (35.4-49); HEMOGLOBIN 12.6 GM/dL (11.7-16.9); MCH 29.1 pg (25.7-33.7); MCHC 33.5 g/dl (32.0-35.9); MEAN CELL VOLUME 86.9 fl (80-96); MEAN PLT VOLUME 8.4 fl (7.5-11.1); PLATELET COUNT 175 K/MM3 (134-434); RBC 4.32 M/mm3 (4.00-5.60); RDW 14.3 % (11.9-15.9); WHITE BLOOD COUNT 5.9 K/mm3 (4.0-10.0)
[2020-10-23 12:22] LABS: POTASSIUM 4.2 mmol/L (3.5-5.1)
[2020-10-23 12:27] LABS: CALCIUM 8.8 mg/dL (8.5-10.1)
[2020-10-23 12:28] LABS: ALBUMIN 3.2 g/dl (3.4-5.0); BLOOD UREA NITROGEN 9.5 mg/dL (7-18)
[2020-10-23 12:31] LABS: BILIRUBIN,TOTAL 0.5 mg/dL (0.2-1); CREATININE 0.6 mg/dL (0.55-1.3); TOT PROT 6.6 g/dl (6.4-8.2)
[2020-10-23] MEDS: MELATONIN 5 MG TABLETS PO SCH ×2 (22:40→22:41)
[2020-10-23] MEDS: THIAMINE HCL 100 MG TABLET (FP) PO SCH ×2 (22:40→22:41)
[2020-10-24] MEDS ORDERED: METHADONE HCL 10 MG TABLET (FOR DETOX USE ONLY) PO ONE (10:00)
[2020-10-24] MEDS: NICOTINE 21 MG/24 HOURS TOPICAL PATCH TD SCH (11:20)
[2020-10-24] MEDS: PRENATAL VITAMINS W/ FOLIC ACID TABLET (FP) PO SCH (11:21)
[2020-10-24] MEDS: THIAMINE HCL 100 MG TABLET (FP) PO SCH (23:50)
[2020-10-24] MEDS: MELATONIN 5 MG TABLETS PO SCH (23:50)
[2020-10-25] MEDS ORDERED: METHADONE HCL 10 MG TABLET (FOR DETOX USE ONLY) ONE (09:05)
[2020-10-25] MEDS ORDERED: METHADONE HCL 5 MG TABLET (FOR DETOX USE ONLY) ONE (09:05)
[2020-10-25] MEDS ORDERED: METHADONE (DETOX) 10 MG, METHADONE (DETOX) 5 MG PO ONE (10:00)
[2020-10-25] MEDS: NICOTINE 21 MG/24 HOURS TOPICAL PATCH TD SCH (11:47)
[2020-10-25] MEDS: PRENATAL VITAMINS W/ FOLIC ACID TABLET (FP) PO SCH (11:47)
[2020-10-26] MEDS: THIAMINE HCL 100 MG TABLET (FP) PO SCH (00:05)
[2020-10-26] MEDS: MELATONIN 5 MG TABLETS PO SCH (00:05)
[2020-10-26 10:00] VITALS: BP 139/90; PULSE 63; TEMP 97.7
[2020-10-26] MEDS ORDERED: METHADONE HCL 10 MG TABLET (FOR DETOX USE ONLY) PO ONE (10:00)
[2020-10-27] MEDS ORDERED: METHADONE HCL 5 MG TABLET (FOR DETOX USE ONLY) PO ONE (06:00)
== END 2020-10-26 11:24 | disposition home or self-care (01) | DRG 773 ==
LOC: YASAS 17:38 → Y6N 10-23 09:25
PROVIDERS: ADMIT Allergy & Immunology; ATTEND Allergy & Immunology
PROC: HZ2ZZZZ Detoxification Services for Substance Abuse Treatment (ICD-10-PCS; principal; 2020-10-23)
DX: F11.23 Opioid dependence with withdrawal (principal); F13.20 Sedative, hypnotic or anxiolytic dependence, uncomplicated; F14.20 Cocaine dependence, uncomplicated; F17.210 Nicotine dependence, cigarettes, uncomplicated; F19.24 Other psychoactive substance dependence with psychoactive substance-induced mood disorder; R74.01 Elevation of levels of liver transaminase levels; Z91.013 Allergy to seafood; Z59.0 Homelessness; Z56.0 Unemployment, unspecified
CPT/HCPCS: 36415; 80053; 85027; 86780; 93005; 93010; C9803; U0003